=== PATIENT | female | born 1985 | race Asian ===

== ENCOUNTER 2020-08-30 09:26 | Outpatient (REF) | payer OTHER, SELFPAY | END 2020-08-30 09:27 | disposition home or self-care (01) | LOC: HO.LAB 09:26 | PROVIDERS: Visit Provider Nurse Practitioner Family | DX: N39.0 Urinary tract infection, site not specified (principal) | CPT/HCPCS: 87086; 87147 ==

== ENCOUNTER 2020-09-22 08:43 | Outpatient (REF) | payer OTHER, SELFPAY ==
[2020-09-24 20:27] LABS: TS Negative Control Passed; TS Panel A 1; TS Panel B 0; TS Positive Control Passed; TSpotTB Negative (SeeBelow)
[2020-09-28 16:08] LABS: Transglutaminase Ab IgG 2 U/mL; Transglutaminase IgA 1 U/mL
== END 2020-09-22 08:44 | disposition home or self-care (01) ==
LOC: HO.LAB 08:43
PROVIDERS: Absent Provider Internal Medicine; PCP Internal Medicine; Referring Provider Internal Medicine; Visit Provider Nurse Practitioner Family
DX: K21.9 Gastro-esophageal reflux disease without esophagitis (principal); R10.9 Unspecified abdominal pain; Z11.1 Encounter for screening for respiratory tuberculosis
CPT/HCPCS: 36415; 83516; 86481

== ENCOUNTER 2021-01-04 16:35 | Outpatient (REF) | payer OTHER, SELFPAY | END 2021-01-04 16:36 | disposition home or self-care (01) | LOC: HO.LNP 16:35 | PROVIDERS: Visit Provider Physician Assistant Medical | DX: N39.0 Urinary tract infection, site not specified (principal) | CPT/HCPCS: 87086 ==

== ENCOUNTER 2021-01-09 06:41 | Day surgery (SDC) | payer OTHER, SELFPAY ==
[2021-01-03 14:58] VITALS: BMI 20.2
--- NOTE | 2021-01-08 08:25 | P.CONAN_ITS ---
Documented by User: Chio Lema NP 01/08/21 08:26 HPI - Anesthesia Eval Consult details Narrative: 35yo F for Upper Endoscopy [facility] Active Problems Active Problems: All Active Problems (Updated 01/03/21 @ 14:54 by Chanell Reich RN) UTI (urinary tract infection) (Acute) Chronic heartburn (Acute) Generalized anxiety disorder (Acute) Past Medical History Medical History (Updated 01/03/21 @ 14:54 by Chanell Reich RN) Chronic heartburn COVID-19 vaccine series completed Generalized anxiety disorder Family History Family History Mother Breast cancer Anxiety Dyslipidemia Surgical History Surgical History (Updated 01/03/21 @ 14:51 by Chanell Reich RN) H/O LEEP Social History Social History (Updated 01/03/21 @ 14:53 by Chanell Reich RN) Household Members: None Housing: Condominium Are you a primary skin care instructor to a significant other at home: No Do you presently have visiting nurse or other home services: No Alcohol intake: current Patient Tobacco Use Status: Tobacco use Unknown Advance Directives Information Provided: Yes (informational brochure mailed) Advance Directives on File: No service: No Current occupational status: employed Current occupation: RN Current occupational exposures/hazards: Yes Sexual orientation: Straight/Heterosexual Gender identity: Female Meds Allergies Allergy/AdvReac Type Severity Reaction Status Date / Time No Known Allergies Allergy Verified 09/22/20 08:51 Home Medications Medication Instructions Recorded Confirmed Last Taken Type famotidine 20 mg tablet 20 mg PO BID 08/08/20 01/03/21 Unknown History Exam Exam Date and Time: January 08, 2021 0825 Height,Weight and Vital Signs: Height 5 ft Weight 47.174 kg Assessment and Plan Assessment Anesthesia Assessment: Chart Reviewed Documented by User: Airam Dover MD 01/09/21 07:13 [facility] Past Medical History Medical History (Updated 01/03/21 @ 14:54 by Chanell Reich RN) Chronic heartburn COVID-19 vaccine series completed Generalized anxiety disorder Family History Family History Mother Breast cancer Anxiety Dyslipidemia Surgical History Surgical History (Updated 01/03/21 @ 14:51 by Chanell Reich RN) H/O LEEP Social History Social History (Updated 01/03/21 @ 14:53 by Chanell Reich RN) Household Members: None Housing: Condominium Are you a primary skin care instructor to a significant other at home: No Do you presently have visiting nurse or other home services: No Alcohol intake: current Patient Tobacco Use Status: Tobacco use Unknown Advance Directives Information Provided: Yes (informational brochure mailed) Advance Directives on File: No service: No Current occupational status: employed Current occupation: RN Current occupational exposures/hazards: Yes Sexual orientation: Straight/Heterosexual Gender identity: Female Meds Allergies Allergy/AdvReac Type Severity Reaction Status Date / Time No Known Allergies Allergy Verified 09/22/20 08:51 Home Medications Medication Instructions Recorded Confirmed Last Taken Type famotidine 20 mg tablet 20 mg PO BID 08/08/20 01/03/21 Unknown History Exam Airway Mallampati Class: II TM Dist: >3cm Neck ROM: Full
[2021-01-09 07:08] LABS: UPreg QC Valid YES; Urine Pregnancy NEGATIVE (NEGATIVE)
[2021-01-09 07:34] VITALS: BP 114/62; PULSE 75; RESP 16; TEMP 533.3; TEMP 992; O2SAT 100
[2021-01-09] MEDS: Lactated Ringers 1,000 ML 100 ML IVCONT (07:38)
--- NOTE | 2021-01-09 07:44 | MHC.SHP ---
Pre-Procedural Eval Section A Date of Service: 01/09/21 The patient is an INPATIENT: No The History & Physical has been completed within 30 days and I have reviewed it.: No Section B Chief Complaint: reflux disease Details of Present Illness: GERD, dyspepsia Relevant Family History (Specify if Yes): No Relevant Social History: None Present Medications: see Short Stay Collaborative assessment Medical History: Significant History (Chronic heartburn Generalized anxiety disorder) History of Previous Operations: Relevant previous surgery/procedure and date(s) (Hx of LEEP) Allergies: Allergies Allergy/AdvReac Type Severity Reaction Status Date / Time No Known Allergies Allergy Verified 09/22/20 08:51 Review of Systems Sugical H&P ROS: Negative: Constitution, Cardiovascular and Respiratory and Yes, Specify: Gastrointestinal (GERD) Exam Surgical H&P Exam: Normal: Heart, Normal: Lungs, Normal: Extremities and Normal: Abdomen Plan Diagnosis/Plan: Unchanged I have reviewed the history and physical and performed a pertinent physical examination on my patient. No changes have occurred unless specified.
--- NOTE | 2021-01-09 08:08 | P.OP_ITS ---
Operative Note Operative Note Date of Service: 01/09/21 Narrative: Pre-op diagnosis:?GERD, dyspepsia Post-op diagnosis:?other (GERD, gastritis, gastric polyps) Procedure:? FLEXIBLE TRANSORAL UPPER GASTROINTESTINAL ENDOSCOPY WITH BIOPSIES Consent:?Indications for the procedure and potential complications of bleeding, perforation, reaction to medications and missed diagnosis were discussed with the patient and informed consent was obtained. Instrument:?Olympus GIF H 190 mid size upper endoscope Monitoring: Vital signs and clinical assessment, continuous EKG monitoring, Pulse oximetry, Carbon Dioxide monitoring and blood pressure monitoring were done throughout the procedure. Procedure:?The patient was placed in the left lateral decubitis position and pre-procedure medications were administered and a bite block was placed. The endoscope was inserted into the mouth and advanced under direct vision to the third part of duodenum. A careful inspection was made as the upper endoscope was withdrawn including a retroflexed examination of the proximal stomach; Findings and interventions are described below. Findings: Larynx:? Normal Esophagus:?GE junction at 36 cms.? No esophagitis or Marquez.? Biopsies were obtained from proximal esophagus to check for EOE. Stomach:? A few 5 mm to 1 cm polyps in the gastric body and fundus - biopsied. ?Mild gastric erythema. Biopsies were obtained. Grade 2 flap valve on retroflexed examination of the cardia. Duodenum:?Normal bulb and descending duodenum Intervention:?Biopsies as noted above Impression and Post Procedure Diagnosis: Endoscopy Findings: ESOPHAGUS: GE junction at 36 cms.? No esophagitis or Marquez.? Biopsies were obtained from proximal esophagus to check for EOE. STOMACH: Gastritis and gastric polyps Plan: Await pathology results Patient has an appointment on 01/23/21 in the GI Clinic with Emerald Murrell NP -. Above findings were reviewed with the patient and GERD and Gastric Polyps handouts were given in the discharge area Surgeon:?Norman Hawkins MD Anesthesia:?MAC (Mariza Medeiros CRNA) Was an Production Control Pegboard Clerk used for this Procedure?:?Yes Production Control Pegboard Clerk:?Edilma Merlos Estimated blood loss (mL):?0 Pathology:?other (A. GASTRIC ANTRUM, R/O H. PYLORI? B. GASTRIC POLYP? C. PROXIMAL ESOPHAGUS, R/O EOE) Condition:?stable Disposition:?PACU
--- NOTE | 2021-01-09 08:08 | PM.OP ---
Brief Operative Note Date of Service: 01/09/21 Pre-op diagnosis: GERD, dyspepsia Post-op diagnosis: other (GERD, gastritis, gastric polyps) Procedure: FLEXIBLE TRANSORAL UPPER GASTROINTESTINAL ENDOSCOPY WITH BIOPSIES Consent: Indications for the procedure and potential complications of bleeding, perforation, reaction to medications and missed diagnosis were discussed with the patient and informed consent was obtained. Instrument: Olympus GIF H 190 mid size upper endoscope Monitoring: Vital signs and clinical assessment, continuous EKG monitoring, Pulse oximetry, Carbon Dioxide monitoring and blood pressure monitoring were done throughout the procedure. Procedure: The patient was placed in the left lateral decubitis position and pre-procedure medications were administered and a bite block was placed. The endoscope was inserted into the mouth and advanced under direct vision to the third part of duodenum. A careful inspection was made as the upper endoscope was withdrawn including a retroflexed examination of the proximal stomach; Findings and interventions are described below. Findings: Larynx: Normal Esophagus: GE junction at 36 cms. No esophagitis or Marquez. Biopsies were obtained from proximal esophagus to check for EOE. Stomach: A few 5 mm to 1 cm polyps in the gastric body and fundus - biopsied. Mild gastric erythema. Biopsies were obtained. Grade 2 flap valve on retroflexed examination of the cardia. Duodenum: Normal bulb and descending duodenum Intervention: Biopsies as noted above Impression and Post Procedure Diagnosis: Endoscopy Findings: ESOPHAGUS: GE junction at 36 cms. No esophagitis or Marquez. Biopsies were obtained from proximal esophagus to check for EOE. STOMACH: Gastritis and gastric polyps Plan: Await pathology results Patient has an appointment on 01/23/21 in the GI Clinic with Emerald Murrell NP -. Above findings were reviewed with the patient and GERD and Gastric Polyps handouts were given in the discharge area Surgeon: Norman Hawkins MD Anesthesia: MAC (Mariza Medeiros CRNA) Was an Medicare Sales Representative used for this Procedure?: Yes Medicare Sales Representative: Edilma Merlos Estimated blood loss (mL): 0 Pathology: other (A. GASTRIC ANTRUM, R/O H. PYLORI B. GASTRIC POLYP C. PROXIMAL ESOPHAGUS, R/O EOE) Condition: stable Disposition: PACU
[2021-01-09 08:45] VITALS: BP 92/51; PULSE 71; RESP 18; TEMP 36.6; O2SAT 98
[2021-01-09 09:00] VITALS: BP 105/64; PULSE 69; RESP 16; TEMP 36.6; O2SAT 100
== END 2021-01-09 09:38 | disposition home or self-care (01) ==
PROVIDERS: Nurse Practitioner; PCP Internal Medicine; Visit Provider Internal Medicine Gastroenterology
PROC: 0DJ08ZZ Inspection of Upper Intestinal Tract, Via Natural or Artificial Opening Endoscopic (ICD-10-PCS; CPT 43235; principal; 2021-01-09 08:20)
DX: K21.9 Gastro-esophageal reflux disease without esophagitis (principal); K29.50 Unspecified chronic gastritis without bleeding; K31.7 Polyp of stomach and duodenum; F41.1 Generalized anxiety disorder; Z79.899 Other long term (current) drug therapy
CPT/HCPCS: 43239; 81025; 88305; 88342

== ENCOUNTER → 2021-01-23 10:45 | Outpatient (BNVA) | payer OTHER, SELFPAY | PROVIDERS: Visit Provider Nurse Practitioner Family ==

== ENCOUNTER → 2021-02-27 13:14 | Outpatient (BNVA) | payer OTHER, SELFPAY | PROVIDERS: Visit Provider Nurse Practitioner Family ==

== ENCOUNTER → 2021-05-30 13:10 | Outpatient (BNVA) | payer OTHER, SELFPAY | PROVIDERS: Referring Provider Internal Medicine; Visit Provider Nurse Practitioner Family ==

== ENCOUNTER 2021-09-12 12:35 | Outpatient (REF) | payer OTHER, SELFPAY ==
[2021-09-14 14:26] LABS: TS Negative Control Passed; TS Panel A 0; TS Panel B 0; TS Positive Control Passed; TSpotTB Negative (Negative)
== END 2021-09-12 12:36 | disposition home or self-care (01) ==
LOC: HO.HMGCLDS 12:35
PROVIDERS: PCP Internal Medicine; Visit Provider Internal Medicine
DX: Z11.1 Encounter for screening for respiratory tuberculosis (principal)
CPT/HCPCS: 36415; 86481

== ENCOUNTER 2022-02-01 08:34 | Outpatient (REF) | payer OTHER, SELFPAY ==
[2022-02-01 11:32] LABS: MANUAL DIFF FLAG NO
[2022-02-01 11:43] LABS: Basophils Percent Auto 0.7 % (0-2); Eosinophils Absolute Auto 0.2 X10*3/uL (0.0-0.4); Eosinophils Percent Auto 2.6 % (0-4); Hematocrit 34.3 % (37.0-47.0); Hemoglobin 10.6 g/dl (12.0-16.0); Imm Gran Abs Auto 0.01 X10*3/uL (0.00-0.03); Imm Gran Pct Auto 0.2 % (0.0-0.4); Lymphocytes Absolute Auto 1.9 X10*3/uL (1.2-4.9); Lymphocytes Percent Auto 31.6 % (20-40); Mean Corpuscular HGB Conc 30.9 g/dl (31.0-35.0); Mean Corpuscular Hemoglobin 22.9 pg (27.0-33.0); Mean Corpuscular Volume 74.1 fL (80.0-98.0); Mean Platelet Volume 10.2 fL (9.4-12.3); Monocytes Absolute Auto 0.4 X10*3/uL (0.1-1.2); Neutrophils Absolute Auto 3.5 x10*3/uL (2.0-8.3); Neutrophils Percent Auto 57.9 % (45-73); Platelet Count 425 X10*3/uL (160-400); Red Blood Count 4.63 X10*6/uL (4.20-5.50)
[2022-02-01 13:01] LABS: Alanine Aminotransferase 15 U/L (0-31); Aspartate Amino Transferase 19 U/L (5-31); Cholesterol 231 mg/dL; Glucose Fasting 91 mg/dL (60-99); HDL Cholesterol 69 mg/dL; Iron 50 mcg/dL (30-160); LDL Cholesterol Calculated 149 mg/dl; Percent Iron Saturation 11 % (15-50); Total Iron Binding Capacity 467 mcg/dL (228-428); Triglycerides 67 mg/dL; Unsaturated Iron Binding 417 ug/dL
[2022-02-01 13:29] LABS: Vitamin D 25-OH Total 32.5 ng/mL (>30)
== END 2022-02-01 08:35 | disposition home or self-care (01) ==
LOC: HO.HMGCLDS 08:34
PROVIDERS: PCP Internal Medicine; Visit Provider Internal Medicine
DX: Z00.01 Encounter for general adult medical examination with abnormal findings (principal); D64.9 Anemia, unspecified; F41.1 Generalized anxiety disorder; K21.00 Gastro-esophageal reflux disease with esophagitis, without bleeding
CPT/HCPCS: 36415; 80061; 82306; 82947; 83540; 84450; 84460; 85025

== ENCOUNTER 2022-04-09 09:05 | Outpatient (REF) | payer OTHER, SELFPAY ==
[2022-04-09 11:47] LABS: MANUAL DIFF FLAG NO
[2022-04-09 12:00] LABS: Basophils Absolute Auto 0.1 X10*3/uL (0.0-0.2); Basophils Percent Auto 1.2 % (0-2); Eosinophils Absolute Auto 0.5 X10*3/uL (0.0-0.4); Eosinophils Percent Auto 7.6 % (0-4); Hematocrit 40.7 % (37.0-47.0); Hemoglobin 12.9 g/dl (12.0-16.0); Imm Gran Abs Auto 0.01 X10*3/uL (0.00-0.03); Imm Gran Pct Auto 0.2 % (0.0-0.4); Lymphocytes Absolute Auto 2.1 X10*3/uL (1.2-4.9); Lymphocytes Percent Auto 35.1 % (20-40); Mean Corpuscular HGB Conc 31.7 g/dl (31.0-35.0); Mean Platelet Volume 10.5 fL (9.4-12.3); Monocytes Absolute Auto 0.4 X10*3/uL (0.1-1.2); Monocytes Percent Auto 6.1 % (2-11); Neutrophils Absolute Auto 2.9 x10*3/uL (2.0-8.3); Neutrophils Percent Auto 49.8 % (45-73); Platelet Count 398 X10*3/uL (160-400); Red Blood Count 5.15 X10*6/uL (4.20-5.50); Red Cell Distribution Width 17.8 % (11.0-16.0); White Blood Count 5.9 X10*3/uL (4.8-10.8)
[2022-04-09 13:54] LABS: Iron 200 mcg/dL (30-160); Percent Iron Saturation 60 % (15-50); Total Iron Binding Capacity 333 mcg/dL (228-428); Unsaturated Iron Binding 133 ug/dL
== END 2022-04-09 09:06 | disposition home or self-care (01) ==
LOC: HO.HMGCLDS 09:05
PROVIDERS: PCP Internal Medicine; Visit Provider Internal Medicine
DX: D50.9 Iron deficiency anemia, unspecified (principal)
CPT/HCPCS: 36415; 83540; 85025

== ENCOUNTER 2023-02-05 07:53 | Outpatient (AMB) | payer OTHER, SELFPAY ==
--- NOTE | 2023-02-05 07:54 | MHC.PC.OV ---
Vital Signs 02/05/23 07:57 Height 5 ft Weight 111 lb BMI 21.7 BP 110/80 Blood Pressure Location Lt brachial Position Sitting Pulse 71 Pulse Source Pulse Oximeter Pulse Oximetry (%) 99 Oxygen Delivery Method Room Air Intake Visit Reasons: Annual Pe Intake Note: Patient is here for her annual physical. no new issues. Allergies No Known Allergies Allergy (Verified 02/05/23 08:13) Medication List - Last Reconciled 02/05/23 by Dorene Rosales MD omeprazole 20 mg PO ONCE paroxetine HCl 20 mg PO DAILY propranolol 10 mg PO BID PRN Tobacco use date assessed: 02/05/23 Dental Screening Dental Screen Date: 02/05/23 Did you have a dental visit in the last 12 months?: Yes Did you have a dental problem in the last 6 months where you did not have access to dental care?: No Was dental information given to patient?: Patient has dentist HPI Annual Pe HPI Details The here today for physical exam. She has history of esophagitis determined by biopsy, and gastroesophageal reflux disease currently on omeprazole which has been helping, but still gets episodes of heartburn every now and then.. She also has generalized anxiety disorder , currently on paroxetine which has been helping control her anxiety, but has been experiencing some loss of libido on the medication. She takes propranolol as needed for performance anxiety. She goes to [facility] for her routine Pap and pelvic exam, last Pap was done December 2022, which came back with normal results per patient. [facility] Medical History (Updated 02/05/23 @ 08:27 by Dorene Rosales MD) Hx of iron deficiency anemia GERD (gastroesophageal reflux disease) Esophagitis determined by biopsy COVID-19 vaccine series completed Chronic heartburn Generalized anxiety disorder Surgical History History of endoscopy H/O LEEP Family History Mother Breast cancer Anxiety Dyslipidemia Social History Household Members: None Housing: Condominium Are you a primary patient centered care specialist to a significant other at home: No Do you presently have visiting nurse or other home services: No 75 years or older and lives alone: No Alcohol intake: current Patient Tobacco Use Status: Never used Tobacco e-Cigarette/Vaping Use: Never Used service: No Current occupational status: employed Current occupation: RN Current occupational exposures/hazards: Yes Sexual orientation: Straight/Heterosexual Gender identity: Female Cognitive needs: No Hearing needs: No Vision needs: No Female Reproductive History Menstrual control method: none Other: Goes to [place] again for her routine Pap and pelvic exam, last Pap smear done December 2022 Questionnaire PHQ-9 Over the last 2 weeks, how often have you been bothered by any of the following problems? 1. Little interest or pleasure in doing things: not at all 2. Feeling down, depressed, or hopeless: not at all 3. Trouble falling or staying asleep, or sleeping too much: not at all 4. Feeling tired or having little energy: not at all 5. Poor appetite or overeating: not at all 6. Feeling bad about yourself - or that you are a failure or have let yourself or your family down: not at all 7. Trouble concentrating on things, such as reading the newspaper or watching television: not at all 8. Moving or speaking so slowly that other people could have noticed. Or the opposite - being so fidgety or restless that you have been moving around a lot more than usual: not at all 9. Thoughts that you would be better off or of hurting yourself in some way: not at all Total score: 0 Depression Screening Interpretation: Negative Depression Screening Done: Yes 75385 - PHQ-9 Billing: Yes Source: Developed by Drs. Zachary Lilly, Rebecca Thompson, Madhav Torres and colleagues, with an educational santo from [employer]. Thrive Questionnaire Date Thrive assessed: 07/25/21 I am a: Patient What is your living situation today?: I have a steady place to live Within the past 12 months, did the food you bought not last and you didn't have the money to get more?: Never true Within the past 12 months, did you worry whether your food would run out before you got money to buy more?: Never true Do you have trouble paying for medicines?: No Do you have trouble getting transportation to medical appointments?: No Do you have trouble paying your heating and electricity bill?: No Do you have trouble taking care of your child, family member or friend?: No Do you have trouble with day-to-day activities such as bathing, preparing meals, shopping, managing finances, etc.?: No Are you currently unemployed and looking for a job?: No Are you interested in more education?: No Please select the resources that you would like help with: None AUDIT C Alcohol Use Questionnaire (AUDIT-C) 1. How often do you have a drink containing alcohol?: Monthly or less 2. How many drinks containing alcohol do you have on a typical day when you are drinking?: 1 or 2 3. How often do you have six or more drinks on one occasion?: Never Total Score: 1 Score Reviewed/Action Taken: No SANDI-7 AMB Questionnaire SANDI-7 Date SANDI - 7 assessed: 02/05/23 Feeling nervous, anxious, or on edge: 0 = Not at all Not being able to stop or control worryin = Not at all Worrying too much about different things: 0 = Not at all Trouble relaxin = Not at all Being so restless that it is hard to sit still: 0 = Not at all Becoming easily annoyed or irritable: 0 = Not at all Feeling afraid as if something awful might happen: 0 = Not at all Total SANDI-7 score (0-4 normal; 5-9 mild; 10-14 moderate; 15-21 severe): 0 Source: Developed by Drs. Zachary Lilly, Rebecca Thompson, Madhav Torres and colleagues, with an educational santo from [employer]. SANDI-7 Assessment Billing SANDI-7 Assessment Tool: SANDI-7 Assessment 18092 Review of Systems Const Reports no additional complaints Eyes Details: Goes to [facility], wears contact lenses and prescription glasses Reports no additional complaints ENT Reports no additional complaints Card Denies chest pain, Denies chest pain with activity and Denies lightheadedness Resp Reports no additional complaints GI Denies abdominal pain, Denies belching, Denies melena, Denies bloating, Denies change in bowel habits, Denies excessive flatus, Reports heartburn (Occasional, controlled with omeprazole) and Denies nausea Reports as per HPI Musc Reports no additional complaints Skin/Breast Denies breast swelling, Denies breast skin changes, Denies breast pain, Denies breast mass and Denies rash Neuro Reports no additional complaints Psych Reports no additional complaints Endo Reports no additional complaints Jorge/Lymph Reports no additional complaints Aller/Immun Reports no additional complaints Physical exam (Primary Care) Vital Signs: Last Vital Signs Pulse 71 02/05/23 07:57 BP 110/80 02/05/23 07:57 Pulse Ox 99 02/05/23 07:57 Oxygen Delivery Method Room Air 02/05/23 07:57 BMI result Body Mass Index 21.7 Tobacco/Smoking Status: Tobacco use Status Tobacco use date assessed 02/05/23 02/05/23 07:59 Patient Tobacco Use Status Never used Tobacco 02/05/23 07:59 e-Cigarette/Vaping Use Never Used 02/05/23 07:59 Depression Screening Interpretation: Negative Thrive Assessment: Date of Thrive Assessment Date Thrive assessed 07/25/21 02/05/23 07:59 Const Other: Alert oriented x3, no acute cardiorespiratory distress noted ambulatory normal gait General: healthy appearing, comfortable and no acute distress Nutritional Appearance: average body habitus Orientation/consciousness: patient oriented x3 Limitations: no limitations HENMT Head: Yes normal to inspection and Yes normocephalic Ears: hearing grossly normal bilaterally, external ears normal, TM's normal bilaterally and EAC's normal General nose exam: Normal external nose present Face and sinus: Yes sinuses nontender and Yes face symmetric Mouth: Normal oral and palatal mucosa present, tongue normal, oropharynx normal and moist mucous membranes Throat: Yes posterior oropharynx normal Eyes General: appearance normal, both eyes and all related structures Periorbital: periorbital findings normal Eyelids: Yes eyelids normal Conjunctivae: conjunctivae normal Sclerae: sclerae normal Pupils: Equal, round and reactive pupils present EOM: EOMs intact bilaterally Neck Other: Supple, no lymphadenopathy, thyroid gland nonpalpable nontender to palpation Neck: Yes normal visual inspection, Yes full ROM, Yes no lymphadenopathy and Yes supple Thyroid: Thyroid normal Chest Chest palpation & inspection: normal inspection of the chest Breast/axilla inspection: normal inspection of the breasts Breast/axilla palpation: normal palpation of the breasts Resp Effort & Inspection: normal respiratory effort and able to speak in complete sentences Auscultation: clear to auscultation bilaterally Cardio Palpation: normal PMI Rate: regular rate Rhythm: regular rhythm Heart sounds: S1 normal heart sound present and S2 normal heart sound present Peripheral pulses: Peripheral pulses 2+ throughout GI Inspection: Yes normal to inspection Palpation (GI): Soft to palpation, nontender, no guarding and no masses Auscultation: normal bowel sounds Other: Currently sees [facility] for routine Pap and pelvic exam, last seen December 2022 with a normal Pap smear result per patient General: Yes no CVA tenderness and Yes deferred Back/Spine/Pelvis Back: no CVA tenderness and No back tenderness Skin General skin exam: no rashes or lesions noted Neuro General: patient oriented x3, gait normal, moves all extremities, Normal light touch and pain sensation, no focal motor deficits and CN's II-XI intact bilaterally Cranial nerves: Yes Equal, round and reactive pupils present Motor exam (neuro): 5/5 motor strength present throughout Extrem General: Yes full ROM, Yes no joint enlargement, Yes no clubbing, cyanosis or edema, Yes no calf tenderness and Yes normal gait Psych Appearance: grossly normal and well kempt Mental Status: mental status grossly normal Speech and movement: Normal speech and movement present Affect: normal affect Attitude: cooperative Thought process: Normal thought process present Thought content: Normal thought content present Assessment and Plan Assessment & Plan (1) Hx of iron deficiency anemia: Code(s): Z86.2 - Personal history of diseases of the blood and blood-forming organs and certain disorders involving the immune mechanism Plan: Last CBC showed hemoglobin hematocrit within normal limits, will repeat another CBC and iron profile. (2) GERD (gastroesophageal reflux disease): Code(s): K21.9 - Gastro-esophageal reflux disease without esophagitis Qualifiers: Esophagitis presence: with esophagitis Esophagitis bleeding: without hemorrhage Qualified Code(s): K21.00 - Gastro-esophageal reflux disease with esophagitis, without bleeding Plan: Still gets occasional episodes of heartburn despite omeprazole, advised to try switching to famotidine 40 mg per tablet to take once a day as needed . Avoid triggers for heartburn (3) Esophagitis determined by biopsy: Code(s): K20.90 - Esophagitis, unspecified without bleeding (4) Generalized anxiety disorder: Code(s): F41.1 - Generalized anxiety disorder Plan: Has been experiencing loss of libido on paroxetine, has been on it now for several years. Will add low-dose bupropion SR 100 mg per tablet to take once a day in a.m.. Taking it late in the afternoon as it can may cause insomnia. If bupropion is helping, may try decreasing dose of paroxetine to just 10 mg daily will see her back for follow-up by telehealth in 6 weeks (5) Annual visit for general adult medical examination with abnormal findings: Code(s): Z00.01 - Encounter for general adult medical examination with abnormal findings Plan: Will check appropriate labs. Recommended dental visit every 6 months and regular eye exams, at least every 2 years, is currently sees [facility]. Take adequate calcium in diet and vitamin-D 3 at 2000 IU per cap once a day, in addition to weight-bearing exercises to help maintain good muscle tone and weight control. Instructed to do self-breast exam, and recommended to get yearly mammogram, starting at age 40. Immunization information provided patient states she is up-to-date with her flu shot received it at [facility] and is up-to-date with the latest COVID booster Orders: Orders IRON PROFILE Today F41.1 - Generalized anxiety disorder, K20.90 - Esophagitis, unspecified without bleeding, K21.9 - Gastro-esophageal reflux disease without esophagitis, Z00.01 - Encounter for general adult medical examination with abnormal findings, Z86.2 - Personal history of diseases of the blood and blood-forming organs and certain disorders involving the immune mechanism Complete Blood Count Auto Diff Today F41.1 - Generalized anxiety disorder, K20.90 - Esophagitis, unspecified without bleeding, K21.9 - Gastro-esophageal reflux disease without esophagitis, Z00.01 - Encounter for general adult medical examination with abnormal findings, Z86.2 - Personal history of diseases of the blood and blood-forming organs and certain disorders involving the immune mechanism Alanine Aminotransferase Today F41.1 - Generalized anxiety disorder, K20.90 - Esophagitis, unspecified without bleeding, K21.9 - Gastro-esophageal reflux disease without esophagitis, Z00.01 - Encounter for general adult medical examination with abnormal findings, Z86.2 - Personal history of diseases of the blood and blood-forming organs and certain disorders involving the immune mechanism Aspartate Amino Transferase Today F41.1 - Generalized anxiety disorder, K20.90 - Esophagitis, unspecified without bleeding, K21.9 - Gastro-esophageal reflux disease without esophagitis, Z00.01 - Encounter for general adult medical examination with abnormal findings, Z86.2 - Personal history of diseases of the blood and blood-forming organs and certain disorders involving the immune mechanism Lipid Panel Today F41.1 - Generalized anxiety disorder, K20.90 - Esophagitis, unspecified without bleeding, K21.9 - Gastro-esophageal reflux disease without esophagitis, Z00.01 - Encounter for general adult medical examination with abnormal findings, Z86.2 - Personal history of diseases of the blood and blood-forming organs and certain disorders involving the immune mechanism Vitamin D 25-OH Total Today F41.1 - Generalized anxiety disorder, K20.90 - Esophagitis, unspecified without bleeding, K21.9 - Gastro-esophageal reflux disease without esophagitis, Z00.01 - Encounter for general adult medical examination with abnormal findings, Z86.2 - Personal history of diseases of the blood and blood-forming organs and certain disorders involving the immune mechanism Medications: New bupropion HCl 100 mg PO QAM 30 tabs 3RF Changed From omeprazole 20 mg PO BID 180 caps 2RF K21.9 - Gastro-esophageal reflux disease without esophagitis To omeprazole 20 mg PO ONCE K21.9 - Gastro-esophageal reflux disease without esophagitis Coding Level of Care Code Est Pt Prev Care 18-39y(19198) Diagnoses Hx of iron deficiency anemia Z86.2 Gastroesophageal reflux disease with esophagitis without hemorrhage K21.00 Esophagitis presence: with esophagitis Esophagitis bleeding: without hemorrhage Esophagitis determined by biopsy K20.90 Generalized anxiety disorder F41.1 Annual visit for general adult medical examination with abnormal findings Z00.01 Additional Codes SANDI-7 Assessment Billing - SANDI-7 Assessment Tool: SANDI-7 Assessment 73091 ([id number])
[2023-02-05 07:57] VITALS: BP 110/80; PULSE 71; O2SAT 99; BMI 21.7
== END 2023-02-05 09:23 | disposition home or self-care (01) ==
PROVIDERS: Visit Provider Internal Medicine
DX: Z00.00 Encounter for general adult medical examination without abnormal findings (principal); Z86.2 Personal history of diseases of the blood and blood-forming organs and certain disorders involving the immune mechanism; K21.00 Gastro-esophageal reflux disease with esophagitis, without bleeding; F41.1 Generalized anxiety disorder
CPT/HCPCS: 99395

== ENCOUNTER 2023-02-18 08:04 | Outpatient (REF) | payer OTHER, SELFPAY ==
[2023-02-18 11:11] LABS: MANUAL DIFF FLAG NO
[2023-02-18 11:25] LABS: Basophils Absolute Auto 0.1 X10*3/uL (0.0-0.2); Basophils Percent Auto 0.9 % (0-2); Eosinophils Absolute Auto 0.2 X10*3/uL (0.0-0.4); Hematocrit 35.6 % (37.0-47.0); Hemoglobin 11.5 g/dl (12.0-16.0); Imm Gran Abs Auto 0.02 X10*3/uL (0.00-0.03); Imm Gran Pct Auto 0.4 % (0.0-0.4); Lymphocytes Absolute Auto 1.8 X10*3/uL (1.2-4.9); Lymphocytes Percent Auto 30.7 % (20-40); Mean Corpuscular HGB Conc 32.3 g/dl (31.0-35.0); Mean Corpuscular Hemoglobin 25.4 pg (27.0-33.0); Mean Corpuscular Volume 78.8 fL (80.0-98.0); Mean Platelet Volume 10.5 fL (9.4-12.3); Monocytes Absolute Auto 0.4 X10*3/uL (0.1-1.2); Monocytes Percent Auto 7.4 % (2-11); Neutrophils Absolute Auto 3.2 x10*3/uL (2.0-8.3); Neutrophils Percent Auto 56.6 % (45-73); Platelet Count 411 X10*3/uL (160-400); Red Blood Count 4.52 X10*6/uL (4.20-5.50); Red Cell Distribution Width 13.9 % (11.0-16.0); White Blood Count 5.7 X10*3/uL (4.8-10.8)
[2023-02-18 12:01] LABS: Alanine Aminotransferase 16 U/L (0-31); Aspartate Amino Transferase 19 U/L (5-31); Cholesterol 226 mg/dL (<200); HDL Cholesterol 59 mg/dL (>40); Iron 98 mcg/dL (30-160); LDL Cholesterol Calculated 143 mg/dL (<100); Percent Iron Saturation 27 % (15-50); Total Iron Binding Capacity 359 mcg/dL (228-428); Triglycerides 121 mg/dL (<150); Unsaturated Iron Binding 261 ug/dL; Vitamin D 25-OH Total 25.9 ng/mL (>30)
== END 2023-02-18 08:05 | disposition home or self-care (01) ==
LOC: HO.HMGCLDS 08:04
PROVIDERS: PCP Internal Medicine; Visit Provider Internal Medicine
DX: Z00.01 Encounter for general adult medical examination with abnormal findings (principal); K21.9 Gastro-esophageal reflux disease without esophagitis; K20.90 Esophagitis, unspecified without bleeding; F41.1 Generalized anxiety disorder; Z86.2 Personal history of diseases of the blood and blood-forming organs and certain disorders involving the immune mechanism
CPT/HCPCS: 36415; 80061; 82306; 83540; 84450; 84460; 85025

== ENCOUNTER 2023-03-20 10:11 | Outpatient (AMB) | payer OTHER, SELFPAY ==
[2023-03-20 10:48] VITALS: BP 108/66; PULSE 80; O2SAT 98; BMI 22.5
--- NOTE | 2023-03-20 10:48 | MHC.PC.OV ---
Vital Signs 03/20/23 10:48 Height 5 ft Weight 115 lb 4 oz BMI 22.5 BP 108/66 Blood Pressure Location Rt brachial Position Sitting Pulse 80 Pulse Source Pulse Oximeter Pulse Oximetry (%) 98 Oxygen Delivery Method Room Air Intake Visit Reasons: 6 Week Follow Up Intake Note: Pt is here for a 6 week follow up for anxiety and starting medication Allergies No Known Allergies Allergy (Verified 03/20/23 10:59) Medication List - Last Reconciled 03/20/23 by Dorene Rosales MD bupropion HCl 100 mg PO QAM omeprazole 20 mg PO ONCE paroxetine HCl 20 mg PO DAILY propranolol 10 mg PO BID PRN Tobacco use date assessed: 03/20/23 Dental Screening Dental Screen Date: 03/20/23 Did you have a dental visit in the last 12 months?: Yes Did you have a dental problem in the last 6 months where you did not have access to dental care?: No Was dental information given to patient?: Patient has dentist HPI 6 Week Follow Up HPI Details 37-year-old lady with generalized anxiety disorder currently on paroxetine 20 mg daily and propranolol 10 mg twice a day as needed for acute anxiety attack, started on bupropion HCL 100 mg daily in a.m. on last visit here approximately 4 weeks ago, here today for follow-up . Patient denies feeling any different on new medication, tolerating it well however. Would like to see if she can go higher on her dose as she still has been having occasional anxiety attack, especially now that she is starting a new job. [facility] Medical History Hx of iron deficiency anemia GERD (gastroesophageal reflux disease) Esophagitis determined by biopsy COVID-19 vaccine series completed Chronic heartburn Generalized anxiety disorder Surgical History History of endoscopy H/O LEEP Family History Mother Breast cancer Anxiety Dyslipidemia Social History Household Members: None Housing: Condominium Are you a primary tree care foreman to a significant other at home: No Do you presently have visiting nurse or other home services: No 75 years or older and lives alone: No Alcohol intake: current Patient Tobacco Use Status: Never used Tobacco e-Cigarette/Vaping Use: Never Used service: No Current occupational status: employed Current occupation: RN Current occupational exposures/hazards: Yes Sexual orientation: Straight/Heterosexual Gender identity: Female Cognitive needs: No Hearing needs: No Vision needs: No Questionnaire Thrive Questionnaire Date Thrive assessed: 07/25/21 AUDIT C Alcohol Use Questionnaire (AUDIT-C) 1. How often do you have a drink containing alcohol?: Never 2. How many drinks containing alcohol do you have on a typical day when you are drinking?: 1 or 2 3. How often do you have six or more drinks on one occasion?: Never Total Score: 0 SANDI-7 AMB Questionnaire SANDI-7 Date SANDI - 7 assessed: 03/20/23 Feeling nervous, anxious, or on edge: 1 = Several days Not being able to stop or control worryin = Several days Worrying too much about different things: 1 = Several days Trouble relaxin = Not at all Being so restless that it is hard to sit still: 0 = Not at all Becoming easily annoyed or irritable: 0 = Not at all Feeling afraid as if something awful might happen: 0 = Not at all Total SANDI-7 score (0-4 normal; 5-9 mild; 10-14 moderate; 15-21 severe): 3 Source: Developed by Drs. Zachary Lilly, Rebecca Thompson, Madhav Torres and colleagues, with an educational santo from [employer]. SANDI-7 Assessment Billing SANDI-7 Assessment Tool: SANDI-7 Assessment 12125 Review of Systems Const All systems reviewed & are unremarkable except as noted in HPI and below Physical exam (Primary Care) Vital Signs: Last Vital Signs Pulse 80 03/20/23 10:48 BP 108/66 03/20/23 10:48 Pulse Ox 98 03/20/23 10:48 Oxygen Delivery Method Room Air 03/20/23 10:48 BMI result Body Mass Index 22.5 Tobacco/Smoking Status: Tobacco use Status Tobacco use date assessed 03/20/23 03/20/23 10:52 Patient Tobacco Use Status Never used Tobacco 03/20/23 10:48 e-Cigarette/Vaping Use Never Used 03/20/23 10:48 Thrive Assessment: Date of Thrive Assessment Date Thrive assessed 07/25/21 03/20/23 10:48 Const Other: Alert oriented x3, no acute cardiorespiratory distress noted ambulatory normal gait Orientation/consciousness: patient oriented x3 Eyes Pupils: Equal, round and reactive pupils present Neck Neck: Yes full ROM, Yes no lymphadenopathy and Yes supple Thyroid: Thyroid normal Resp Effort & Inspection: normal respiratory effort and able to speak in complete sentences Auscultation: clear to auscultation bilaterally Cardio Palpation: normal PMI Rate: regular rate Rhythm: regular rhythm Heart sounds: S1 normal heart sound present and S2 normal heart sound present Peripheral pulses: Peripheral pulses 2+ throughout Neuro General: patient oriented x3, gait normal, moves all extremities, Normal light touch and pain sensation, no focal motor deficits and CN's II-XI intact bilaterally Cranial nerves: Yes Equal, round and reactive pupils present Motor exam (neuro): 5/5 motor strength present throughout Psych Appearance: grossly normal and well kempt Mental Status: mental status grossly normal Speech and movement: Normal speech and movement present Affect: normal affect Attitude: cooperative Thought process: Normal thought process present Thought content: Normal thought content present Assessment and Plan Assessment & Plan (1) Generalized anxiety disorder: Code(s): F41.1 - Generalized anxiety disorder Plan: Increased dose of your bupropion HCL to 200 mg daily in a.m., patient will just be doubling up on her current prescription, prescription also sent for 200 mg tablet to her pharmacy once she runs out of her current stock. Continue with paroxetine and propranolol which he takes only as needed for acute anxiety attacks. Schedule telehealth visit in 6 weeks for follow-up Medications: Changed From bupropion HCl 100 mg PO QAM 30 tabs 3RF To bupropion HCl 200 mg PO QAM 30 tabs 3RF Coding Level of Care Code Est Pt Level 3 (43694) Diagnoses Generalized anxiety disorder F41.1 Additional Codes SANDI-7 Assessment Billing - SANDI-7 Assessment Tool: SANDI-7 Assessment 55461 ([id number])
== END 2023-03-20 11:05 | disposition home or self-care (01) ==
PROVIDERS: PCP Internal Medicine; Visit Provider Internal Medicine
DX: F41.1 Generalized anxiety disorder (principal)
CPT/HCPCS: 96127; 99213

== ENCOUNTER 2023-05-06 10:51 | Outpatient (AMB) | payer OTHER, SELFPAY ==
--- NOTE | 2023-05-06 10:49 | MHC.PC.OV ---
Intake Visit Reasons: f/u wellbutrin [phone] i phone Allergies No Known Allergies Allergy (Verified 05/06/23 11:10) Medication List - Last Reconciled 05/06/23 by Dorene Rosales MD bupropion HCl 100 mg PO QAM omeprazole 20 mg PO ONCE paroxetine HCl 20 mg PO DAILY propranolol 10 mg PO BID PRN Tobacco use date assessed: 05/06/23 Dental Screening Dental Screen Date: 05/06/23 Did you have a dental visit in the last 12 months?: Yes Did you have a dental problem in the last 6 months where you did not have access to dental care?: No Was dental information given to patient?: Patient has dentist HPI f/u wellbutrin [phone] i phone HPI Details 37-year-old lady here today for follow-up on her anxiety disorder. She is currently on paroxetine 20 mg daily, and bupropion dose was increased to 200 mg once a day in a.m.. Patient however has been having tremors on the higher dose and she has decreased the dose down to 100 mg once a day in a.m.. She also has propranolol to take as needed for acute anxiety attacks which she needs to use rarely. She states that she has been feeling better, anxiety level is controlled and has not had any acute episodes. Mood is stable like to continue on present medications. She also reports that libido is slightly better with the lower dose. [facility] Medical History Hx of iron deficiency anemia GERD (gastroesophageal reflux disease) Esophagitis determined by biopsy COVID-19 vaccine series completed Chronic heartburn Generalized anxiety disorder Surgical History History of endoscopy H/O LEEP Family History Mother Breast cancer Anxiety Dyslipidemia Social History Household Members: None Housing: Condominium Are you a primary home visit field care manager to a significant other at home: No Do you presently have visiting nurse or other home services: No 75 years or older and lives alone: No Alcohol intake: current Patient Tobacco Use Status: Never used Tobacco e-Cigarette/Vaping Use: Never Used service: No Current occupational status: employed Current occupation: RN Current occupational exposures/hazards: Yes Sexual orientation: Straight/Heterosexual Gender identity: Female Cognitive needs: No Hearing needs: No Vision needs: No Questionnaire PHQ-9 Over the last 2 weeks, how often have you been bothered by any of the following problems? 1. Little interest or pleasure in doing things: not at all 2. Feeling down, depressed, or hopeless: not at all 3. Trouble falling or staying asleep, or sleeping too much: not at all 4. Feeling tired or having little energy: not at all 5. Poor appetite or overeating: not at all 6. Feeling bad about yourself - or that you are a failure or have let yourself or your family down: not at all 7. Trouble concentrating on things, such as reading the newspaper or watching television: not at all 8. Moving or speaking so slowly that other people could have noticed. Or the opposite - being so fidgety or restless that you have been moving around a lot more than usual: not at all 9. Thoughts that you would be better off or of hurting yourself in some way: not at all Total score: 0 Depression Screening Interpretation: Negative Depression Screening Done: Yes 34554 - PHQ-9 Billing: Yes Source: Developed by Drs. Zachary Lilly, Rebecca Thompson, Madhav Torres and colleagues, with an educational santo from [employer]. Thrive Questionnaire Date Thrive assessed: 05/06/23 I am a: Patient What is your living situation today?: I have a steady place to live Within the past 12 months, did the food you bought not last and you didn't have the money to get more?: Never true Within the past 12 months, did you worry whether your food would run out before you got money to buy more?: Never true Do you have trouble paying for medicines?: No Do you have trouble getting transportation to medical appointments?: No Do you have trouble paying your heating and electricity bill?: No Do you have trouble taking care of your child, family member or friend?: No Do you have trouble with day-to-day activities such as bathing, preparing meals, shopping, managing finances, etc.?: No Are you currently unemployed and looking for a job?: No Are you interested in more education?: No THRIVE Score: 0 AUDIT C Alcohol Use Questionnaire (AUDIT-C) 1. How often do you have a drink containing alcohol?: Monthly or less 2. How many drinks containing alcohol do you have on a typical day when you are drinking?: 1 or 2 3. How often do you have six or more drinks on one occasion?: Never Total Score: 1 SANDI-7 AMB Questionnaire SANDI-7 Date SANDI - 7 assessed: 05/06/23 Feeling nervous, anxious, or on edge: 0 = Not at all Not being able to stop or control worryin = Not at all Worrying too much about different things: 0 = Not at all Trouble relaxin = Not at all Being so restless that it is hard to sit still: 0 = Not at all Becoming easily annoyed or irritable: 0 = Not at all Feeling afraid as if something awful might happen: 0 = Not at all Total SANDI-7 score (0-4 normal; 5-9 mild; 10-14 moderate; 15-21 severe): 0 Source: Developed by Drs. Zachary Lilly, Rebecca Thompson, Madhav Torres and colleagues, with an educational santo from [employer]. SANDI-7 Assessment Billing SANDI-7 Assessment Tool: SANDI-7 Assessment 20043 Review of Systems Const Reports no additional complaints Eyes Reports no additional complaints ENT Reports no additional complaints Card Denies chest pain, Denies chest pain with activity and Denies lightheadedness Resp Reports no additional complaints GI Denies abdominal pain, Denies bloating, Denies change in bowel habits and Denies nausea Reports as per HPI Musc Reports no additional complaints Neuro Reports no additional complaints Psych Reports no additional complaints Aller/Immun Reports no additional complaints Physical exam (Primary Care) Tobacco/Smoking Status: Tobacco use Status Tobacco use date assessed 05/06/23 05/06/23 10:51 Patient Tobacco Use Status Never used Tobacco 05/06/23 10:51 e-Cigarette/Vaping Use Never Used 05/06/23 10:51 PHQ-9: PHQ-9 Score PHQ-9: Total score 0 05/06/23 11:16 Depression Screening Interpretation: Negative Thrive Assessment: Date of Thrive Assessment Date Thrive assessed 05/06/23 05/06/23 10:51 Telehealth Telehealth Location of provider rendering services: practice address Location of patient: address on file Patient Identification confirmed using: Name, : Yes Telehealth method: video Patient verbally consented to treatment: Yes Patient verbally consented to billing insurance company: Yes Patient informed of any privacy concerns related to visit: Yes Minutes spent on Phone/Video with Pt.: 15 Assessment and Plan Assessment & Plan (1) Generalized anxiety disorder: Code(s): F41.1 - Generalized anxiety disorder Plan: Controlled on present medications, continued on bupropion XL 100 mg daily in a.m. and paroxetine 20 mg daily, takes propranolol 20 mg as needed for acute anxiety attacks.Discussed symptoms of anxiety. Declines referral for counseling.. Discussed other ways to relieve stress including : exercise or a massage, Get enough rest, Avoid alcohol, caffeine, nicotine, and illegal drugs which can increase your anxiety level and cause sleep problems. Coding Level of Care Code Tele Est Pt Level 3 (18776) Diagnoses Generalized anxiety disorder F41.1 Additional Codes SANDI-7 Assessment Billing - SANDI-7 Assessment Tool: SANDI-7 Assessment 70402 ([id number])
== END 2023-05-06 12:27 | disposition home or self-care (01) ==
LOC: HO.HMGC 10:51
PROVIDERS: PCP Internal Medicine; Visit Provider Internal Medicine
DX: F41.1 Generalized anxiety disorder (principal)
CPT/HCPCS: 99213

== ENCOUNTER 2024-02-10 08:41 | Outpatient (AMB) | payer OTHER, SELFPAY ==
--- NOTE | 2024-02-10 08:47 | MHC.PC.OV ---
Vital Signs 02/10/24 08:48 Height 5 ft Weight 112 lb BMI 21.9 BP 94/60 Blood Pressure Location Rt brachial Position Sitting Pulse 65 Pulse Source Pulse Oximeter Pulse Oximetry (%) 99 Oxygen Delivery Method Room Air Intake Visit Reasons: Annual PE Intake Note: Pt is here today for her PE: Is last menstrual period known: Yes Last menstrual period: 01/27/24 Allergies No Known Allergies Allergy (Verified 02/10/24 09:57) Medication List - Last Reconciled 02/10/24 by Dorene Rosales MD omeprazole 20 mg PO ONCE paroxetine HCl 20 mg PO DAILY propranolol 10 mg PO BID PRN Tobacco use date assessed: 02/10/24 Dental Screening Dental Screen Date: 02/10/24 Did you have a dental visit in the last 12 months?: Yes Did you have a dental problem in the last 6 months where you did not have access to dental care?: No Was dental information given to patient?: Patient has dentist HPI Annual PE HPI Details The patient is a 38-year-old female presenting for a routine physical examination and follow-up on gastrointestinal complaints, specifically gastritis and esophagitis. She was previously diagnosed with gastritis following an upper endoscopy a few years ago, which also indicated esophagitis determined via biopsy. new she has reduced her on episode dose from 40-20 mg, and despite attempts to reduce her omeprazole intake , she continues to experience significant heartburn even in the absence of dietary triggers, indicating persistent gastric acid challenges. The patient has a history of anemia characterized by lower hemoglobin levels, primarily due to menstrual-related bleeding observed during the initial days of her cycle. The anemia has been chronic, with past blood work showing microcytic hypochromic anemia. She also struggles with external hemorrhoids, with occasional bleeding and discomfort, sometimes requiring manual reduction. Additionally, the patient's social anxiety disorder is managed with paroxetine and as-needed propranolol, which helps alleviate the physical symptoms of anxiety. - COVID-19 vaccine administered; no booster received. - Received flu vaccine on January 22, 2024. - Previous Tdap vaccination status unclear to the patient; verification advised. - Previous normal Pap smear; records requested from [facility] in [place] for confirmation. - Blood work last completed on February 18, 2023, indicating hemoglobin 11.5 g/dL and elevated LDL cholesterol at 143 mg/dL. - Iron panel was normal as of last check. - Vitamin D deficiency noted previously. [facility] Medical History (Updated 02/10/24 @ 10:10 by Dorene Rosales MD) External hemorrhoid, thrombosed Vitamin D deficiency Dyslipidemia Hx of iron deficiency anemia GERD (gastroesophageal reflux disease) Esophagitis determined by biopsy COVID-19 vaccine series completed Chronic heartburn Generalized anxiety disorder Surgical History History of endoscopy H/O LEEP Family History Mother Breast cancer Anxiety Dyslipidemia Social History Household Members: None Housing: Condominium Are you a primary child day care center worker to a significant other at home: No Do you presently have visiting nurse or other home services: No 75 years or older and lives alone: No Alcohol intake: current Patient Tobacco Use Status: Never used Tobacco e-Cigarette/Vaping Use: Never Used service: No Current occupational status: employed Current occupation: RN Current occupational exposures/hazards: Yes Sexual orientation: Straight/Heterosexual Gender identity: Female Cognitive needs: No Hearing needs: No Vision needs: No Female Reproductive History Menstrual Date of last menstrual period: 01/27/24 Other: goes to [facility] in [place] Questionnaire PHQ-9 Over the last 2 weeks, how often have you been bothered by any of the following problems? 1. Little interest or pleasure in doing things: not at all 2. Feeling down, depressed, or hopeless: not at all 3. Trouble falling or staying asleep, or sleeping too much: not at all 4. Feeling tired or having little energy: not at all 5. Poor appetite or overeating: not at all 6. Feeling bad about yourself - or that you are a failure or have let yourself or your family down: not at all 7. Trouble concentrating on things, such as reading the newspaper or watching television: not at all 8. Moving or speaking so slowly that other people could have noticed. Or the opposite - being so fidgety or restless that you have been moving around a lot more than usual: not at all 9. Thoughts that you would be better off or of hurting yourself in some way: not at all Total score: 0 Depression Screening Interpretation: Negative Depression Screening Done: Yes 43292 - PHQ-9 Billing: Yes Source: Developed by Drs. Zachary Lilly, Rebecca Thompson, Madhav Torres and colleagues, with an educational santo from [employer]. Thrive Questionnaire Date Thrive assessed: 02/07/24 I am a: Patient What is your living situation today?: I have a steady place to live Within the past 12 months, did the food you bought not last and you didn't have the money to get more?: Never true Within the past 12 months, did you worry whether your food would run out before you got money to buy more?: Never true Do you have trouble paying for medicines?: No Do you have trouble getting transportation to medical appointments?: No Do you have trouble paying your heating and electricity bill?: No Do you have trouble taking care of your child, family member or friend?: No Do you have trouble with day-to-day activities such as bathing, preparing meals, shopping, managing finances, etc.?: No Are you currently unemployed and looking for a job?: No Are you interested in more education?: No Please select the resources that you would like help with: None Currently or been in a relationship where the following occur: No concerns reported THRIVE Score: 0 AUDIT C Alcohol Use Questionnaire (AUDIT-C) 1. How often do you have a drink containing alcohol?: Monthly or less 2. How many drinks containing alcohol do you have on a typical day when you are drinking?: 1 or 2 3. How often do you have six or more drinks on one occasion?: Never Total Score: 1 SANDI-7 AMB Questionnaire SANDI-7 Date SANDI - 7 assessed: 05/06/23 Feeling nervous, anxious, or on edge: 0 = Not at all Not being able to stop or control worryin = Not at all Worrying too much about different things: 0 = Not at all Trouble relaxin = Not at all Being so restless that it is hard to sit still: 0 = Not at all Becoming easily annoyed or irritable: 0 = Not at all Feeling afraid as if something awful might happen: 0 = Not at all Total SANDI-7 score (0-4 normal; 5-9 mild; 10-14 moderate; 15-21 severe): 0 Source: Developed by Drs. Zachary Lilly, Rebecca Thompson, Madhav Torres and colleagues, with an educational santo from [employer]. SANDI-7 Assessment Billing SANDI-7 Assessment Tool: SANDI-7 Assessment 24292 Review of Systems Const Details: - Constitutional: Denies abnormal weight changes. - Cardiovascular: Denies chest pain. - Respiratory: Denies cough or wheezing. - Gastrointestinal: Omeprazole effectively controls heartburn; denies GI bleeding. - Musculoskeletal: Denies joint pains or weakness. - Genitourinary: Regular menstrual bleeding noted. - Neurological: Denies headaches or numbness. - Endocrine: No thyroid issues known. - Hematological: Chronic anemia related to menstruation reported. Eyes Details: has myopia and astigmatism , wears conntact lenses , goes to [place] [facility] Skin/Breast Denies rash Psych Reports no additional complaints Jorge/Lymph Reports no additional complaints Aller/Immun Reports no additional complaints Physical exam (Primary Care) Vital Signs: Last Vital Signs Pulse 65 02/10/24 08:48 BP 94/60 02/10/24 08:48 Pulse Ox 99 02/10/24 08:48 Oxygen Delivery Method Room Air 02/10/24 08:48 BMI result Body Mass Index 21.9 Tobacco/Smoking Status: Tobacco use Status Tobacco use date assessed 02/10/24 02/10/24 08:49 Patient Tobacco Use Status Never used Tobacco 02/10/24 08:49 e-Cigarette/Vaping Use Never Used 02/10/24 08:49 Depression Screening Interpretation: Negative Thrive Assessment: Date of Thrive Assessment Date Thrive assessed 02/07/24 02/10/24 08:49 Currently or been in a relationship where the following occur: No concerns reported Const Other: - Vital Signs- Blood pressure 94/60 mmHg, typically runs low. - Ears- Clean, some wax in right ear, not obstructive. - Oral- No oral lesions or throat redness observed. - Neck- No lymphadenopathy or thyroid enlargement on palpation. - Cardiovascular- Regular heart sounds, no murmurs. - Respiratory- Clear breath sounds, symmetrical lung expansion. - Breast- No palpable masses; negative nipple discharge. - Abdominal- Soft, non-tender, no enlargement or masses detected. - Extremities- Pulses present, no edema or swelling. Orientation/consciousness: patient oriented x3 GI Rectal Exam - Female: visual inspection normal, normal sphincter tone and External hemorrhoid(s) present General: Yes no CVA tenderness and Yes deferred (se[place] OBGYN in [place]) Back/Spine/Pelvis Back: no CVA tenderness and No back tenderness Skin General skin exam: no rashes or lesions noted Neuro General: patient oriented x3, gait normal, tone normal, moves all extremities and no focal motor deficits Extrem General: Yes full ROM, Yes no joint enlargement, Yes no clubbing, cyanosis or edema, Yes no pedal edema, Yes no calf tenderness and Yes normal gait Psych Appearance: grossly normal and well kempt Mental Status: mental status grossly normal Speech and movement: Normal speech and movement present Affect: normal affect Thought process: Normal thought process present Thought content: Normal thought content present Results Reviewed Results Reviewed: - Labs from Feb 18, 2023: Hemoglobin 11.5 g/dL, LDL 143 mg/dL, normal iron profile, elevated platelet count 411 ? 10^9/L. - Vitamin D previously low. Coding Level of Care Code Est Pt Prev Care 18-39y(33595) Diagnoses Annual visit for general adult medical examination with abnormal findings Z00. Esophagitis determined by biopsy K20.90 Gastroesophageal reflux disease with esophagitis without hemorrhage K21.00 Esophagitis bleeding: without hemorrhage Esophagitis presence: with esophagitis Hx of iron deficiency anemia Z86.2 Dyslipidemia E78.5 Vitamin D deficiency E55.9 External hemorrhoid, thrombosed K64.5 Generalized anxiety disorder F41.1 Additional Codes SANDI-7 Assessment Billing - SANDI-7 Assessment Tool: SANDI-7 Assessment 50485 ([id number]) PHQ-9 - 46695 - PHQ-9 Billing: Yes ([id number]) Assessment & Plan Assessment & Plan (1) Annual visit for general adult medical examination with abnormal findings: Code(s): Z00.01 - Encounter for general adult medical examination with abnormal findings (2) Esophagitis determined by biopsy: Code(s): K20.90 - Esophagitis, unspecified without bleeding Category: Medical (3) GERD (gastroesophageal reflux disease): Code(s): K21.9 - Gastro-esophageal reflux disease without esophagitis Category: Medical Qualifiers: Esophagitis bleeding: without hemorrhage Esophagitis presence: with esophagitis Qualified Code(s): K21.00 - Gastro-esophageal reflux disease with esophagitis, without bleeding (4) Hx of iron deficiency anemia: Code(s): Z86.2 - Personal history of diseases of the blood and blood-forming organs and certain disorders involving the immune mechanism Category: Medical (5) Dyslipidemia: Code(s): E78.5 - Hyperlipidemia, unspecified Category: Medical (6) Vitamin D deficiency: Code(s): E55.9 - Vitamin D deficiency, unspecified Category: Medical (7) External hemorrhoid, thrombosed: Code(s): K64.5 - Perianal venous thrombosis Category: Medical (8) Generalized anxiety disorder: Code(s): F41.1 - Generalized anxiety disorder Category: Medical Plan - Gastritis and Esophagitis: Refer patient to Dr. Hawkins for a potential repeat upper endoscopy to assess current status and further manage esophagitis. - Anemia: Reorder CBC and iron profile for reevaluation. Consider endocrinological consultation if required after results. - External Hemorrhoids: Referral to Dr. Zeng, colorectal surgeon, for thorough assessment and potential intervention. - Social Anxiety: Continue current regimen of paroxetine with propranolol as needed. - Vitamin D Deficiency: Continue supplementing and recheck levels. - Hyperlipidemia: Advise lifestyle modifications to manage elevated LDL, considering family history. - Preventative Care: Encourage compliance Pap smear follow-up, goes to [facility] , copy of last pap smear requested I discussed with the patient her current medical conditions and outlined management options. The need for a repeat endoscopy was emphasized to reassess gastritis and esophagitis. I referred her to colorectal surgery for hemorrhoids, highlighting hemorrhoidal cream usage and other interventions. We reviewed her medication management for social anxiety disorder, which is stable with current treatment. I explained the implications of her lipid profile and advised on lifestyle interventions. Additionally, I emphasized the importance of securing insurance coverage for upcoming procedures and addressed her vaccination status. .- Follow up on referral to Dr. Hawkins and Dr. Zeng as instructed. - Perform scheduled blood tests when fasting. - Monitor for significant changes in symptoms and report any new symptoms. - Maintain prescribed medications for social anxiety. - Ensure up-to-date vaccinations. - Seek dental and ophthalmology care as needed. - Keep a record of vaccinations received and notify my office for updates. Orders: Orders IRON PROFILE Today E55.9 - Vitamin D deficiency, unspecified, E78.5 - Hyperlipidemia, unspecified, K20.90 - Esophagitis, unspecified without bleeding, K21.00 - Gastro-esophageal reflux disease with esophagitis, without bleeding, Z00.01 - Encounter for general adult medical examination with abnormal findings, Z13.1 - Encounter for screening for diabetes mellitus, Z86.2 - Personal history of diseases of the blood and blood-forming organs and certain disorders involving the immune mechanism Aspartate Amino Transferase Today E55.9 - Vitamin D deficiency, unspecified, E78.5 - Hyperlipidemia, unspecified, K20.90 - Esophagitis, unspecified without bleeding, K21.00 - Gastro-esophageal reflux disease with esophagitis, without bleeding, Z00.01 - Encounter for general adult medical examination with abnormal findings, Z13.1 - Encounter for screening for diabetes mellitus, Z86.2 - Personal history of diseases of the blood and blood-forming organs and certain disorders involving the immune mechanism Complete Blood Count Auto Diff Today E55.9 - Vitamin D deficiency, unspecified, E78.5 - Hyperlipidemia, unspecified, K20.90 - Esophagitis, unspecified without bleeding, K21.00 - Gastro-esophageal reflux disease with esophagitis, without bleeding, Z00.01 - Encounter for general adult medical examination with abnormal findings, Z13.1 - Encounter for screening for diabetes mellitus, Z86.2 - Personal history of diseases of the blood and blood-forming organs and certain disorders involving the immune mechanism Basic Metabolic Panel Fasting Today E55.9 - Vitamin D deficiency, unspecified, E78.5 - Hyperlipidemia, unspecified, K20.90 - Esophagitis, unspecified without bleeding, K21.00 - Gastro-esophageal reflux disease with esophagitis, without bleeding, Z00.01 - Encounter for general adult medical examination with abnormal findings, Z13.1 - Encounter for screening for diabetes mellitus, Z86.2 - Personal history of diseases of the blood and blood-forming organs and certain disorders involving the immune mechanism Alanine Aminotransferase Today E55.9 - Vitamin D deficiency, unspecified, E78.5 - Hyperlipidemia, unspecified, K20.90 - Esophagitis, unspecified without bleeding, K21.00 - Gastro-esophageal reflux disease with esophagitis, without bleeding, Z00.01 - Encounter for general adult medical examination with abnormal findings, Z13.1 - Encounter for screening for diabetes mellitus, Z86.2 - Personal history of diseases of the blood and blood-forming organs and certain disorders involving the immune mechanism Lipid Panel Today E55.9 - Vitamin D deficiency, unspecified, E78.5 - Hyperlipidemia, unspecified, K20.90 - Esophagitis, unspecified without bleeding, K21.00 - Gastro-esophageal reflux disease with esophagitis, without bleeding, Z00.01 - Encounter for general adult medical examination with abnormal findings, Z13.1 - Encounter for screening for diabetes mellitus, Z86.2 - Personal history of diseases of the blood and blood-forming organs and certain disorders involving the immune mechanism Vitamin D 25-OH Total Today E55.9 - Vitamin D deficiency, unspecified, E78.5 - Hyperlipidemia, unspecified, K20.90 - Esophagitis, unspecified without bleeding, K21.00 - Gastro-esophageal reflux disease with esophagitis, without bleeding, Z00.01 - Encounter for general adult medical examination with abnormal findings, Z13.1 - Encounter for screening for diabetes mellitus, Z86.2 - Personal history of diseases of the blood and blood-forming organs and certain disorders involving the immune mechanism Referrals Gastroenterology Referral K20.90 - Esophagitis, unspecified without bleeding, K21.00 - Gastro-esophageal reflux disease with esophagitis, without bleeding, Z86.2 - Personal history of diseases of the blood and blood-forming organs and certain disorders involving the immune mechanism General Surgery Referral K64.5 - Perianal venous thrombosis Medications: Refilled paroxetine HCl 20 mg PO DAILY 90 tabs 4RF F41.1 - Generalized anxiety disorder
[2024-02-10 08:48] VITALS: BP 94/60; PULSE 65; O2SAT 99; BMI 21.9
== END 2024-02-10 10:25 | disposition home or self-care (01) ==
PROVIDERS: PCP Internal Medicine; Visit Provider Internal Medicine
DX: Z00.00 Encounter for general adult medical examination without abnormal findings (principal); K21.00 Gastro-esophageal reflux disease with esophagitis, without bleeding; Z86.2 Personal history of diseases of the blood and blood-forming organs and certain disorders involving the immune mechanism; E78.5 Hyperlipidemia, unspecified; E55.9 Vitamin D deficiency, unspecified; K64.5 Perianal venous thrombosis; F41.1 Generalized anxiety disorder

== ENCOUNTER → 2024-02-10 08:41 | Outpatient (BNVA) | payer OTHER, SELFPAY | PROVIDERS: PCP Internal Medicine; Visit Provider Internal Medicine | DX: Z00.01 Encounter for general adult medical examination with abnormal findings (principal); K21.00 Gastro-esophageal reflux disease with esophagitis, without bleeding; E78.5 Hyperlipidemia, unspecified; E55.9 Vitamin D deficiency, unspecified; K64.5 Perianal venous thrombosis; F41.1 Generalized anxiety disorder; Z86.2 Personal history of diseases of the blood and blood-forming organs and certain disorders involving the immune mechanism | CPT/HCPCS: 96127 ==

== ENCOUNTER 2024-02-21 07:41 | Outpatient (REF) | payer OTHER, SELFPAY ==
[2024-02-21 11:13] LABS: MANUAL DIFF FLAG NO
[2024-02-21 11:20] LABS: Basophils Absolute Auto 0.1 X10*3/uL (0.0-0.2); Basophils Percent Auto 0.9 % (0-2); Eosinophils Absolute Auto 0.1 X10*3/uL (0.0-0.4); Eosinophils Percent Auto 2.6 % (0-4); Hematocrit 37.9 % (37.0-47.0); Hemoglobin 12.3 g/dl (12.0-16.0); Imm Gran Abs Auto 0.01 X10*3/uL (0.00-0.03); Imm Gran Pct Auto 0.2 % (0.0-0.4); Lymphocytes Absolute Auto 1.9 X10*3/uL (1.2-4.9); Lymphocytes Percent Auto 36.3 % (20-40); Mean Corpuscular HGB Conc 32.5 g/dl (31.0-35.0); Mean Corpuscular Hemoglobin 26.4 pg (27.0-33.0); Mean Corpuscular Volume 81.3 fL (80.0-98.0); Mean Platelet Volume 10.2 fL (9.4-12.3); Monocytes Absolute Auto 0.3 X10*3/uL (0.1-1.2); Monocytes Percent Auto 6.4 % (2-11); Neutrophils Absolute Auto 2.8 x10*3/uL (2.0-8.3); Neutrophils Percent Auto 53.6 % (45-73); Platelet Count 374 X10*3/uL (160-400); Red Blood Count 4.66 X10*6/uL (4.20-5.50); Red Cell Distribution Width 14.2 % (11.0-16.0); White Blood Count 5.3 X10*3/uL (4.8-10.8)
[2024-02-21 11:34] LABS: Alanine Aminotransferase 18 U/L (0-31); Anion Gap 10 (12-20); Aspartate Amino Transferase 24 U/L (5-31); Blood Urea Nitrogen 12 mg/dL (9-16); Carbon Dioxide 26 mmol/L (22-29); Chloride 107 mmol/L (96-108); Cholesterol 223 mg/dL (<200); Estimated Glomerular Filt Rate > 60; Glucose Fasting 98 mg/dL (60-99); HDL Cholesterol 54 mg/dL (>40); Iron 94 mcg/dL (30-160); LDL Cholesterol Calculated 146 mg/dL (<100); Percent Iron Saturation 30 % (15-50); Potassium 4.3 mmol/L (3.3-5.1); Sodium 139 mmol/L (135-145); Total Iron Binding Capacity 310 mcg/dL (228-428); Triglycerides 115 mg/dL (<150); Unsaturated Iron Binding 216 ug/dL
[2024-02-21 11:52] LABS: Vitamin D 25-OH Total 41.9 ng/mL (>30)
== END 2024-02-21 07:42 | disposition home or self-care (01) ==
LOC: HO.HMGCLDS 07:41
PROVIDERS: PCP Internal Medicine; Visit Provider Internal Medicine
DX: Z00.01 Encounter for general adult medical examination with abnormal findings (principal); Z86.2 Personal history of diseases of the blood and blood-forming organs and certain disorders involving the immune mechanism; K21.00 Gastro-esophageal reflux disease with esophagitis, without bleeding; E78.5 Hyperlipidemia, unspecified; Z13.1 Encounter for screening for diabetes mellitus; E55.9 Vitamin D deficiency, unspecified
CPT/HCPCS: 36415; 80048; 80061; 82306; 83540; 84450; 84460; 85025

== ENCOUNTER 2024-03-01 14:45 | Outpatient (AMB) | payer OTHER, SELFPAY ==
--- NOTE | 2024-03-01 14:46 | MHC.OFFVIS ---
Vital Signs 03/01/24 14:49 Height 5 ft Weight 113 lb BMI 22.1 Intake Visit Reasons: Perianal venous thrombosis Intake Note: This patient presents fro perianal venous thrombosis. Pt c/o; reports no complaints at this time. Chinese Teacher Required: No [employer] Repairer: [employer] Repairer Present ([place]) Accompanied by: Self / Same As Patient Allergies No Known Allergies Allergy (Verified 03/01/24 14:52) Medication List - Last Reconciled 03/01/24 by Norbert Zeng MD omeprazole 20 mg PO ONCE paroxetine HCl 20 mg PO DAILY propranolol 10 mg PO BID PRN HPI HPI Perianal venous thrombosis: Details: [age] year old female referred for hemorrhoid issues. She describes having some prolapse of her hemorrhoids frequently with bowel movements. She says that whenever these were prolapse, her hemorrhoids become painful and swollen if she does not reduce this. She therefore had to manually reduce this hemorrhoids each time She denies any bleeding. She says that she has had problems with hemorrhoids for about 2-3 years but this had been very months until the past few months. She denies problems with constipation. [facility] Medical History (Updated 03/01/24 @ 15:17 by Norbert Zeng MD) Hemorrhoids that prolapse with straining and require manual replacement back inside anal canal External hemorrhoid, thrombosed Vitamin D deficiency Dyslipidemia Hx of iron deficiency anemia GERD (gastroesophageal reflux disease) Esophagitis determined by biopsy COVID-19 vaccine series completed Chronic heartburn Generalized anxiety disorder Surgical History History of endoscopy H/O LEEP Family History Mother Breast cancer Anxiety Dyslipidemia Social History Household Members: None Housing: Condominium Are you a primary eye care professional to a significant other at home: No Do you presently have visiting nurse or other home services: No 75 years or older and lives alone: No Alcohol intake: current Patient Tobacco Use Status: Never used Tobacco e-Cigarette/Vaping Use: Never Used service: No Current occupational status: employed Current occupation: RN Current occupational exposures/hazards: Yes Sexual orientation: Straight/Heterosexual Gender identity: Female Cognitive needs: No Hearing needs: No Vision needs: No Review of Systems Const Denies chills and Denies fever(s) Card Denies chest pain, Denies dyspnea and Denies dyspnea on exertion Resp Denies cough, Denies dyspnea and Denies dyspnea on exertion GI Denies hematochezia and Denies change in bowel habits Denies hematuria Musc Denies back pain and Denies limited range of motion Neuro Denies focal weakness and Denies convulsions Psych Denies depression and Denies mood swings Physical Exam Vital Signs: BMI result Body Mass Index 22.1 Const General: comfortable and no acute distress Orientation/consciousness: patient oriented x3 Neck Neck: Yes no lymphadenopathy Resp Auscultation: clear to auscultation bilaterally Cardio Rhythm: regular rhythm GI Other: Rectal exam shows small external hemorrhoids on the left Palpation (GI): Soft to palpation, nontender and no guarding Neuro General: patient oriented x3 Office Procedures Anoscopy She was in alexx-knife position. The anoscope was gently inserted. A full examination of the anal canal was done. She had this mixed internal external hemorrhoidal column on the left anterior which seems to prolapse easily. There were no other lesions. There was no fissure ulceration. There was no induration on digital exam. There was no thrombosis. [id number] Assessment & Plan Assessment & Plan (1) Hemorrhoids that prolapse with straining and require manual replacement back inside anal canal: Code(s): K64.2 - Third degree hemorrhoids Category: Medical Plan: She describes having to manually reduce her hemorrhoids that prolapse with bowel movements. Examination with the anoscopy does reveal a mixed column of internal and external hemorrhoids. I therefore had a long discussion with her about the option of hemorrhoidectomy. I explained the technique of this procedure. I reviewed the risks including but not limited to bleeding, infections, postop pain, as well as the benefits and alternatives. I also explained to her what to expect postoperatively She is planning to have her hemorrhoids removed down the line but says that she is starting a new job and may have to put it off until sometime next year. She will call the office once she is ready to schedule. I also explained to her that she can follow up in the office on a p.r.n. basis any time. Coding Level of Care Code New Pt Level 3 (18603) Diagnoses Hemorrhoids that prolapse with straining and require manual replacement back inside anal canal K64.2 CPT Codes Details - CPT: 37900-Bpeohxox ([id number])
[2024-03-01 14:49] VITALS: BMI 22.1
== END 2024-03-01 15:06 | disposition home or self-care (01) ==
PROVIDERS: PCP Internal Medicine; Visit Provider Surgery
DX: K64.2 Third degree hemorrhoids (principal)
CPT/HCPCS: 46600; 99203

== ENCOUNTER → 2024-03-01 14:45 | Outpatient (BNVA) | payer OTHER, SELFPAY | PROVIDERS: PCP Internal Medicine; Visit Provider Surgery | DX: K64.2 Third degree hemorrhoids (principal) | CPT/HCPCS: 46600 ==

== ENCOUNTER 2025-03-21 14:23 | Outpatient (AMB) | payer OTHER, SELFPAY ==
--- NOTE | 2025-03-21 14:34 | A.OFFPC_ITS ---
Vital Signs 03/21/25 14:35 Height 5 ft Weight 118 lb BMI 23.0 BP 110/70 Blood Pressure Location Lt brachial Position Sitting Pulse 86 Pulse Source Pulse Oximeter Temp 98.8 F Temp Source Oral Pulse Oximetry (%) 96 Intake Visit Reasons: Annual PE Allergies No Known Allergies Allergy (Verified 03/21/25 15:01) Medication List - Last Reconciled 03/21/25 by Dorene Rosales MD omeprazole 20 mg PO ONCE propranolol 10 mg PO BID PRN sertraline 50 mg PO DAILY Tobacco use date assessed: 03/21/25 Dental Screening Dental Screen Date: 03/21/25 Did you have a dental visit in the last 12 months?: Yes Did you have a dental problem in the last 6 months where you did not have access to dental care?: No Was dental information given to patient?: Patient has dentist HPI Annual PE HPI Details The patient is a 39 year old female presenting for a physical exam. She has a history of anxiety and reports her current medication, paroxetine 20 mg, is not working as well as it used to. She has been on this medication for nearly 10 years and has previously experienced significant withdrawal symptoms when trying to discontinue it, so she has weaned herself down to 10 mg over a long period. She also takes propranolol as needed for social anxiety. Has history of gastroesophageal reflux, with a history of esophagitis, controlled with omeprazole 20 mg taken every other day. She has not had a repeat upper endoscopy. She also has hemorrhoids that protrude with bowel movements but are not currently bleeding or bothersome; she deferred a surgical removal that was offered by a general surgeon due to inability to be out of work after surgery for an extended periods of time, as she just started a new job. Past medical history is notable for anemia, with fluctuating hemoglobin levels . She also has a history of high cholesterol. She reports her periods are heavy but last only three days, without clots. She is up-to-date with her Pap smear, sees a technology assistant at [facility] with normal Pap smear done this year per patient, but has not yet had her first mammogram. [facility] Medical History Hemorrhoids that prolapse with straining and require manual replacement back inside anal canal External hemorrhoid, thrombosed Vitamin D deficiency Dyslipidemia Hx of iron deficiency anemia GERD (gastroesophageal reflux disease) Esophagitis determined by biopsy COVID-19 vaccine series completed Chronic heartburn Generalized anxiety disorder Surgical History History of endoscopy H/O LEEP Family History Mother Breast cancer Anxiety Dyslipidemia Social History Household Members: None Housing: Condominium Are you a primary career counselor to a significant other at home: No Do you presently have visiting nurse or other home services: No 75 years or older and lives alone: No Alcohol intake: current Patient Tobacco Use Status: Never used Tobacco e-Cigarette/Vaping Use: Never Used service: No Current occupational status: employed Current occupation: RN Current occupational exposures/hazards: Yes Sexual orientation: Straight/Heterosexual Gender identity: Female Cognitive needs: No Hearing needs: No Vision needs: No Questionnaire PHQ-9 Over the last 2 weeks, how often have you been bothered by any of the following problems? 1. Little interest or pleasure in doing things: not at all 2. Feeling down, depressed, or hopeless: not at all 3. Trouble falling or staying asleep, or sleeping too much: not at all 4. Feeling tired or having little energy: not at all 5. Poor appetite or overeating: not at all 6. Feeling bad about yourself - or that you are a failure or have let yourself or your family down: not at all 7. Trouble concentrating on things, such as reading the newspaper or watching television: not at all 8. Moving or speaking so slowly that other people could have noticed. Or the opposite - being so fidgety or restless that you have been moving around a lot more than usual: not at all 9. Thoughts that you would be better off or of hurting yourself in some way: not at all Total score: 0 Depression Screening Interpretation: Negative Depression Screening Done: Yes 69876 - PHQ-9 Billing: Yes Source: Developed by Drs. Zachary Lilly, Rebecca Thompson, Madhav Torres and colleagues, with an educational santo from [employer]. Thrive Questionnaire Date Thrive assessed: 03/21/25 I am a: Patient What is your living situation today?: I choose not to answer this question Within the past 12 months, did the food you bought not last and you didn't have the money to get more?: I choose not to answer this question Within the past 12 months, did you worry whether your food would run out before you got money to buy more?: I choose not to answer this question Do you have trouble paying for medicines?: No Do you have trouble getting transportation to medical appointments?: No Do you have trouble paying your heating and electricity bill?: No Do you have trouble taking care of your child, family member or friend?: No Do you have trouble with day-to-day activities such as bathing, preparing meals, shopping, managing finances, etc.?: No Are you currently unemployed and looking for a job?: No Are you interested in more education?: No Please select the resources that you would like help with: None Currently or been in a relationship where the following occur: No concerns reported THRIVE Score: 0 AUDIT C Alcohol Use Questionnaire (AUDIT-C) 1. How often do you have a drink containing alcohol?: Monthly or less 2. How many drinks containing alcohol do you have on a typical day when you are drinking?: 1 or 2 3. How often do you have six or more drinks on one occasion?: Never Total Score: 1 Score Reviewed/Action Taken: Yes SANDI-7 AMB Questionnaire SANDI-7 Date SANDI - 7 assessed: 03/21/25 Feeling nervous, anxious, or on edge: 1 = Several days Not being able to stop or control worryin = Several days Worrying too much about different things: 1 = Several days Trouble relaxin = Not at all Being so restless that it is hard to sit still: 0 = Not at all Becoming easily annoyed or irritable: 0 = Not at all Feeling afraid as if something awful might happen: 0 = Not at all Total SANDI-7 score (0-4 normal; 5-9 mild; 10-14 moderate; 15-21 severe): 3 Source: Developed by Drs. Zachary Lilly, Rebecca Thompson, Madhav Torres and colleagues, with an educational santo from [employer]. SANDI-7 Assessment Billing SANDI-7 Assessment Tool: SANDI-7 Assessment 98930 Review of Systems Const Denies chills and Denies fever(s) Eyes Details: Goes to [facility], has myopia, wears corrective lenses(glasses and contact lenses) ENT Reports no additional complaints and Denies dysphagia Card Denies chest pain, Denies dyspnea and Denies dyspnea on exertion Resp Denies cough, Denies dyspnea and Denies dyspnea on exertion GI Denies melena, Denies hematochezia, Denies change in bowel habits, Denies dysphagia and Reports heartburn (Controlled on omeprazole taken every other day) Reports no additional complaints Musc Denies back pain and Denies limited range of motion Skin/Breast Denies breast skin changes, Denies breast pain, Denies lesions and Denies rash Neuro Denies focal weakness and Denies convulsions Psych Reports as per HPI and Denies depression Endo Reports no additional complaints Jorge/Lymph Reports no additional complaints Aller/Immun Reports no additional complaints Physical exam (Primary Care) Vital Signs: Last Vital Signs Temp 98.8 F 03/21/25 14:35 Pulse 86 03/21/25 14:35 BP 110/70 03/21/25 14:35 Pulse Ox 96 03/21/25 14:35 BMI result Body Mass Index 23.0 Tobacco/Smoking Status: Tobacco use Status Tobacco use date assessed 03/21/25 03/21/25 14:38 Patient Tobacco Use Status Never used Tobacco 03/21/25 14:38 e-Cigarette/Vaping Use Never Used 03/21/25 14:38 PHQ-9: PHQ-9 Score PHQ-9: Total score 0 03/21/25 15:07 Depression Screening Interpretation: Negative Thrive Assessment: Date of Thrive Assessment Date Thrive assessed 03/21/25 03/21/25 14:38 Currently or been in a relationship where the following occur: No concerns reported Const Orientation/consciousness: patient oriented x3 HENMT Head: Yes normocephalic Ears: hearing grossly normal bilaterally, external ears normal, TM's normal bilaterally and EAC's normal General nose exam: Normal external nose present Face and sinus: Yes sinuses nontender and Yes face symmetric Mouth: Normal oral and palatal mucosa present and moist mucous membranes Eyes General: appearance normal, both eyes and all related structures Neck Neck: Yes full ROM, Yes no lymphadenopathy and Yes supple Thyroid: Thyroid normal (Nonpalpable) Chest Chest palpation & inspection: normal inspection of the chest Breast/axilla inspection: normal inspection of the breasts Breast/axilla palpation: normal palpation of the breasts Resp Auscultation: clear to auscultation bilaterally Cardio Other: S1-S2 present regular rate and rhythm GI Rectal Exam - Female: visual inspection normal, normal sphincter tone and External hemorrhoid(s) present General: Yes no CVA tenderness and Yes deferred (sees OBGYN in [facility]) Back/Spine/Pelvis Back: no CVA tenderness and No back tenderness Skin General skin exam: no rashes or lesions noted Neuro General: patient oriented x3, gait normal, tone normal, moves all extremities and no focal motor deficits Extrem General: Yes full ROM, Yes no joint enlargement, Yes no clubbing, cyanosis or edema, Yes no pedal edema, Yes no calf tenderness and Yes normal gait Psych Appearance: grossly normal and well kempt Mental Status: mental status grossly normal Speech and movement: Normal speech and movement present Affect: normal affect Coding Level of Care Code Est Pt Prev Care 40-64y(11164) Diagnoses Annual visit for general adult medical examination with abnormal findings Z00.01 Generalized anxiety disorder F41.1 Dyslipidemia E78.5 Vitamin D deficiency E55.9 Gastroesophageal reflux disease with esophagitis without hemorrhage K21.00 Esophagitis bleeding: without hemorrhage Esophagitis presence: with esophagitis External hemorrhoid, thrombosed K64.5 Hx of iron deficiency anemia Z86.2 Additional Codes SANDI-7 Assessment Billing - SANDI-7 Assessment Tool: SANDI-7 Assessment 62729 ([id number]) PHQ-9 - 42919 - PHQ-9 Billing: Yes ([id number]) Assessment & Plan Assessment & Plan (1) Annual visit for general adult medical examination with abnormal findings: Code(s): Z00.01 - Encounter for general adult medical examination with abnormal findings Plan: at age 39 with a family history of breast cancer in her mother, a screening mammogram will be ordered. The patient is up-to-date on her Pap smear; records will be requested from her [facility]. The patient will be due for a screening colonoscopy at age 44. She has declined flu and COVID vaccinations at this time. The patient will provide her Tdap vaccination records for review. Fasting labs have been ordered (2) Generalized anxiety disorder: Code(s): F41.1 - Generalized anxiety disorder Category: Medical Plan: The patient reports that her longstanding prescription for paroxetine 20 mg is less effective. Given her history of significant withdrawal symptoms, she is reluctant to increase the dose and has already self-tapered to 10 mg. The plan is to cross-taper to sertraline by starting 50 mg, initially taken as 25 mg for the first week, while tapering off paroxetine. A prescription for propranolol for as-needed use for social anxiety will be refilled. An in-person follow-up is scheduled in four weeks to assess the medication change. (3) Dyslipidemia: Code(s): E78.5 - Hyperlipidemia, unspecified Category: Medical Plan: Fasting labs to check lipids today. Reinforced importance of adhering to a healthy diet and getting at least 30 minutes of moderate intensity exercise 3 to 4 times a week. (4) Vitamin D deficiency: Code(s): E55.9 - Vitamin D deficiency, unspecified Category: Medical Plan: Will check vitamin-D level (5) GERD (gastroesophageal reflux disease): Code(s): K21.9 - Gastro-esophageal reflux disease without esophagitis Category: Medical Qualifiers: Esophagitis bleeding: without hemorrhage Esophagitis presence: with esophagitis Qualified Code(s): K21.00 - Gastro-esophageal reflux disease with esophagitis, without bleeding Plan: Continue omeprazole 20 mg once a day, will check CBC (6) External hemorrhoid, thrombosed: Code(s): K64.5 - Perianal venous thrombosis Category: Medical Plan: Continue with increase dietary fiber intake and take [id number] preparation H. notify us if any worsening of symptoms develops (7) Hx of iron deficiency anemia: Code(s): Z86.2 - Personal history of diseases of the blood and blood-forming organs and certain disorders involving the immune mechanism Category: Medical Plan: CBC ordered Plan Patient was informed and verbally consented to the use of an ambient scribe for clinic note documentation during this visit. Orders: Orders MM tomosynthesis screening BI 03/21/25 Z12.31 - Encounter for screening mammogram for malignant neoplasm of breast Basic Metabolic Panel Fasting 03/21/25 E55.9 - Vitamin D deficiency, unspecified, E78.5 - Hyperlipidemia, unspecified, K21.00 - Gastro-esophageal reflux disease with esophagitis, without bleeding, K64.5 - Perianal venous thrombosis, Z86.2 - Personal history of diseases of the blood and blood-forming organs and certain disorders involving the immune mechanism Complete Blood Count Auto Diff 03/21/25 E55.9 - Vitamin D deficiency, unspecified, E78.5 - Hyperlipidemia, unspecified, K21.00 - Gastro-esophageal reflux disease with esophagitis, without bleeding, K64.5 - Perianal venous thrombosis, Z86.2 - Personal history of diseases of the blood and blood-forming organs and certain disorders involving the immune mechanism Lipid Panel 03/21/25 E55.9 - Vitamin D deficiency, unspecified, E78.5 - Hyperlipidemia, unspecified, K21.00 - Gastro-esophageal reflux disease with esophagitis, without bleeding, K64.5 - Perianal venous thrombosis, Z86.2 - Personal history of diseases of the blood and blood-forming organs and certain disorders involving the immune mechanism Vitamin D 25-OH Total 03/21/25 E55.9 - Vitamin D deficiency, unspecified, E78.5 - Hyperlipidemia, unspecified, K21.00 - Gastro-esophageal reflux disease with esophagitis, without bleeding, K64.5 - Perianal venous thrombosis, Z86.2 - Pe rsonal history of diseases of the blood and blood-forming organs and certain disorders involving the immune mechanism Aspartate Amino Transferase 03/21/25 E55.9 - Vitamin D deficiency, unspecified, E78.5 - Hyperlipidemia, unspecified, K21.00 - Gastro-esophageal reflux disease with esophagitis, without bleeding, K64.5 - Perianal venous thrombosis, Z86.2 - Personal history of diseases of the blood and blood-forming organs and certain disorders involving the immune mechanism Alanine Aminotransferase 03/21/25 E55.9 - Vitamin D deficiency, unspecified, E78.5 - Hyperlipidemia, unspecified, K21.00 - Gastro-esophageal reflux disease with esophagitis, without bleeding, K64.5 - Perianal venous thrombosis, Z86.2 - Personal history of diseases of the blood and blood-forming organs and certain disorders involving the immune mechanism Medications: New sertraline 50 mg PO DAILY 30 tabs 1RF Refilled propranolol 10 mg PO BID PRN 30 tabs 5RF palpitations Discontinued paroxetine HCl Discontinued Reason: Doctor's Order 20 mg PO DAILY 90 tabs 4RF F41.1 - Generalized anxiety disorder
[2025-03-21 14:35] VITALS: BP 110/70; PULSE 86; TEMP 37.1; O2SAT 96; BMI 23.0
== END 2025-03-21 15:19 | disposition home or self-care (01) ==
LOC: HO.HMCC 14:23
PROVIDERS: PCP Internal Medicine; Visit Provider Internal Medicine
DX: Z00.01 Encounter for general adult medical examination with abnormal findings (principal); F41.1 Generalized anxiety disorder; E78.5 Hyperlipidemia, unspecified; E55.9 Vitamin D deficiency, unspecified; K21.00 Gastro-esophageal reflux disease with esophagitis, without bleeding; K64.5 Perianal venous thrombosis; Z86.2 Personal history of diseases of the blood and blood-forming organs and certain disorders involving the immune mechanism

== ENCOUNTER → 2025-03-21 14:23 | Outpatient (BNVA) | payer OTHER, SELFPAY | PROVIDERS: PCP Internal Medicine; Visit Provider Internal Medicine | DX: Z00.01 Encounter for general adult medical examination with abnormal findings (principal); F41.1 Generalized anxiety disorder; E78.5 Hyperlipidemia, unspecified; E55.9 Vitamin D deficiency, unspecified; K21.00 Gastro-esophageal reflux disease with esophagitis, without bleeding; Z86.2 Personal history of diseases of the blood and blood-forming organs and certain disorders involving the immune mechanism; K64.5 Perianal venous thrombosis | CPT/HCPCS: 96127 ==